=== PATIENT | male | born 1955 | race Two or more races ===

== ENCOUNTER 2018-12-21 10:30 | Inpatient (IN) | payer OTHER ==
[~2018-12-21] VITALS: Ht 177.8 cm; Wt 104.3 kg
[2018-12-24] MEDS ORDERED: AVASTIN25 MG/1 ML IV (16:52)
[2019-01-03] MEDS ORDERED: HYOSCYAMINE0.125 M1 SL (17:10)
[2019-01-03] MEDS ORDERED: INTESTINEX680 M1 PO (17:10)
[2019-01-03] MEDS ORDERED: OXYC1TAB9 PO (17:10)
[2019-01-03] MEDS ORDERED: PANTOPRAZOLE SO40 MG PO (17:11)
== END 2019-01-03 17:47 | disposition home or self-care (01) | DRG 330 ==
LOC: O/R 10:30 → SURH 12-31 09:15 → O/R 12-31 09:39 → SURG 12-31 09:39 → SURH 12-31 10:30 → SURG 12-31 17:53
PROVIDERS: ADMIT Surgery
PROC: 0DJD8ZZ Inspection of Lower Intestinal Tract, Via Natural or Artificial Opening Endoscopic (ICD-10-PCS; 2018-12-31)
PROC: 4A12X4Z Monitoring of Cardiac Electrical Activity, External Approach (ICD-10-PCS; 2018-12-31)
PROC: 0DTN4ZZ Resection of Sigmoid Colon, Percutaneous Endoscopic Approach (ICD-10-PCS; principal; 2018-12-31 09:15)
PROC: 4A033R1 Measurement of Arterial Saturation, Peripheral, Percutaneous Approach (ICD-10-PCS; 2019-01-01)
DX: K57.32 Diverticulitis of large intestine without perforation or abscess without bleeding (principal); N32.1 Vesicointestinal fistula; K63.89 Other specified diseases of intestine; I11.9 Hypertensive heart disease without heart failure; E66.09 Other obesity due to excess calories; G47.33 Obstructive sleep apnea (adult) (pediatric)

== ENCOUNTER 2019-12-26 07:11 | Day surgery (SDC) | payer OTHER ==
[~2019-12-26 07:11] MED LIST: AVASTIN25 MG/1 ML IV; HYOSCYAMINE0.125 M1 SL; INTESTINEX680 M1 PO; OXYC1TAB9 PO; PANTOPRAZOLE SO40 MG PO
== END 2019-12-26 12:15 | disposition home or self-care (01) ==
LOC: AMB-ENDOS 07:11
PROVIDERS: ATTEND Surgery
DX: K62.82 Dysplasia of anus (principal); D12.3 Benign neoplasm of transverse colon; Z20.828 Contact with and (suspected) exposure to other viral communicable diseases